=== PATIENT | female | born 2000 | race Hispanic/Latino ===

== ENCOUNTER 2019-09-15 04:07 | Emergency (ER) | payer MEDICAID, OTHER ==
[2019-09-15 05:07] LABS: APPEARANCE,URINE CLOUDY (CLEAR); BILIRUBIN,URINE SMALL (NEGATIVE); COLOR,URINE BROWN (YELLOW); GLUCOSE, URINE (UA) NEGATIVE (NEGATIVE); KETONES,URINE NEGATIVE (NEGATIVE); LEUKOCYTE ESTERASE ,URINE MODERATE (NEGATIVE); NITRATE,URINE POSITIVE (NEGATIVE); OCCULT BLOOD,URINE LARGE (NEGATIVE); PH,URINE 5.5 (5.0-8.0); PROTEIN,URINE 100 mg/dL (NEGATIVE)
[2019-09-15 05:08] LABS: HCG,QUAL RESULT NEGATIVE (NEGATIVE)
[2019-09-15 05:32] LABS: BACTERIA,URINE Moderate /HPF (None Seen); RBC,URINE TNTC /HPF (0-1)
[2019-09-15] MEDS ORDERED: PHENAZOPYRIDINE HCL 200 MG TABLET ONE (05:32)
[2019-09-15] MEDS ORDERED: SULFAMETHOX-TMP DS 800/160 TAB ONE (05:32)
== END 2019-09-15 06:02 | disposition home or self-care (01) ==
LOC: EDH 04:07
DX: N39.0 Urinary tract infection, site not specified (principal)
CPT/HCPCS: 81001; 81025

== ENCOUNTER 2020-02-19 18:13 | Emergency (ER) | payer OTHER, SELFPAY | END 2020-02-19 18:32 | disposition home or self-care (01) | LOC: EDH 18:13 | DX: Z20.828 Contact with and (suspected) exposure to other viral communicable diseases (principal) | CPT/HCPCS: 99281 ==